=== PATIENT | male | born 1965 ===

== ENCOUNTER 2017-03-13 14:13 | Emergency (ER) | payer OTHER ==
[2017-03-13 14:46] VITALS: BMI 29.2
[2017-03-13] MEDS ORDERED: Lidocaine 5% Patch TD STA (15:50)
--- NOTE | 2017-03-13 16:03 | C.PDOC ---
History Of Present Illness 51 year old male who presents to the ER with a complaint of lower back pain since Tuesday after doing heavy lifting at work. Patient states he has been taking an unknown medication from the [place] with minimal relief to pain. Patient reports the pain worsens with walking, turning, or bending; denies weakness, numbness, dysuria, hematuria, or incontinence. Time Seen by Provider: 03/13/17 15:21 Chief Complaint (Nursing): Back Pain History Per: Patient History/Exam Limitations: no limitations Onset/Duration Of Symptoms: Days Current Symptoms Are (Timing): Still Present Quality Of Discomfort: Unable To Describe Previous Symptoms: None Associated Symptoms: None Exacerbating Factor(s): Turning, Other (Walking) Past Medical History Reviewed: Historical Data, Nursing Documentation, Vital Signs Vital Signs: Last Vital Signs Temp 98.2 F 03/13/17 14:46 Pulse 69 03/13/17 14:46 Resp 20 03/13/17 14:46 BP 158/83 H 03/13/17 14:46 Pulse Ox 98 03/13/17 16:10 - Medical History PMH: No Chronic Diseases Surgical History: No Surg Hx Family History: States: Unknown Family Hx - Social History Hx Alcohol Use: No Hx Substance Use: No - Immunization History Hx Tetanus Toxoid Vaccination: No Hx Influenza Vaccination: No Hx Pneumococcal Vaccination: No Review Of Systems Genitourinary: Negative for: Dysuria, Incontinence, Hematuria Musculoskeletal: Positive for: Back Pain Neurological: Negative for: Weakness, Numbness Physical Exam - Physical Exam Appears: Non-toxic Skin: Normal Color, Warm, Dry Head: Atraumatic, Normacephalic Oral Mucosa: Moist Back: Normal Inspection, No Vertebral Tenderness, No Paraspinal Tenderness Extremity: Normal ROM (x4) Neurological/Psych: Oriented x3, Normal Speech, Normal Cognition, Normal Motor, Normal Sensation Gait: Steady ED Course And Treatment O2 Sat by Pulse Oximetry: 98 Medical Decision Making Medical Decision Making: Plan: Tylenol Flexeril Toradol Lidoderm 507 pm pt reports decreased pain when sitting. sitll with some pain with movement, will d/c home with lidoderm, ibuprofen. tylenol, and flexeril with clinic f/u Disposition Counseled Patient/Family Regarding: Diagnosis, Need For Followup, Rx Given - Disposition Referrals: [facility] [Outside] [facility] [Outside] Disposition: HOME/ ROUTINE Disposition Time: 17:08 Condition: IMPROVED Additional Instructions: [place] los medicamentos segn lo prescrito para el dolor; No conduzca ni opere m quinas que tomen relxant del msculo. Seguimiento en la clnica mdica; Llame para francine chriss. Si tiene problemas para hacer francine chriss, llame al servicio de conserjera. Evite levantar objetos pesados. Vuelva a la bharath de emergencias para cualquier sntoma peor. Prescriptions: Acetaminophen [Tylenol 325mg tab] 650 mg PO Q6 #50 tab Cyclobenzaprine [Cyclobenzaprine HCl] 10 mg PO Q8 #9 tab Ibuprofen [Motrin] 600 mg PO TID #30 tab Lidocaine 5% [Lidoderm] 1 patch TP DAILY #5 patch Instructions: Acute Low Back Pain (ED) Forms: Gen Discharge Inst [place], [facility] ([place]) - Clinical Impression Clinical Impression: Low back pain, Lumbar sprain
[2017-03-13] MEDS ORDERED: Lidocaine 5% Patch TD ONE (16:05)
[2017-03-13 17:23] VITALS: BP 142/79; PULSE 82; RESP 16; TEMP 97.9
[2017-03-17 12:19] VITALS: O2SAT 98
== END 2017-03-13 17:23 | disposition home or self-care (01) ==
LOC: C.ER 14:13
DX: S33.5XXA Sprain of ligaments of lumbar spine, initial encounter (principal); X50.0XXA Overexertion from strenuous movement or load, initial encounter; Y93.89 Activity, other specified; Y92.89 Other specified places as the place of occurrence of the external cause; Y99.0 Civilian activity done for income or pay
CPT/HCPCS: 96372; 99284; J1885